=== PATIENT | male | born 1950 | race Caucasian/White ===

== ENCOUNTER → 2016-10-11 | Outpatient (CLI) | payer MEDICARE, OTHER ==
[~2016-10-11] MED LIST: ANTARA130 MG PO; ASPIRIN 32325 MG/TA1 PO; ASPIRIN 32325 MG/TAB PO; ASPIRIN E.C. 8181 MG PO; GEMFIBROZIL600 MG PO; GLIPIZIDE5 MG PO; GLUCOPHAGE1000 MG PO; GLUCOTROL 5M5 MG/TAB PO; GLYBURIDE MICRON3 MG PO; GLYBURIDE MICRON6 MG PO; IMDUR 30MG30 MG/TAB PO; LIPITOR 80MG80 MG PO; LOPID 600M600 MG/TAB PO; LOPRESSOR 550 MG/TAB PO; METFORMIN1000 MG PO; PLAVIX 75MG TAB75 MG PO; PRAVACHOL10 MG PO; ZESTRIL2.5 MG PO
== END ==
LOC: MHCPAIN 09:20
DX: G89.29 Other chronic pain (principal); M47.817 Spondylosis without myelopathy or radiculopathy, lumbosacral region; M79.2 Neuralgia and neuritis, unspecified; F17.210 Nicotine dependence, cigarettes, uncomplicated
CPT/HCPCS: G0463

== ENCOUNTER → 2017-01-12 | Outpatient (CLI) | payer MEDICARE, OTHER | LOC: MHCPAIN 09:36 | DX: G89.29 Other chronic pain (principal); M47.27 Other spondylosis with radiculopathy, lumbosacral region; M79.2 Neuralgia and neuritis, unspecified; F17.210 Nicotine dependence, cigarettes, uncomplicated | CPT/HCPCS: G0463 ==

== ENCOUNTER → 2017-01-27 | Outpatient (CLI) | payer MEDICARE, OTHER | LOC: MHCPAIN 09:51 | DX: M47.27 Other spondylosis with radiculopathy, lumbosacral region (principal); M51.17 Intervertebral disc disorders with radiculopathy, lumbosacral region | CPT/HCPCS: J1100; J2250; J3010; Q9967 ==

== ENCOUNTER → 2017-02-09 | Outpatient (CLI) | payer MEDICARE, OTHER | LOC: MHCPAIN 10:06 | DX: G89.29 Other chronic pain (principal); M47.817 Spondylosis without myelopathy or radiculopathy, lumbosacral region; M79.2 Neuralgia and neuritis, unspecified; F17.210 Nicotine dependence, cigarettes, uncomplicated | CPT/HCPCS: G0463 ==

== ENCOUNTER 2017-05-06 07:15 | Day surgery (SDC) | payer MEDICARE, OTHER ==
[2017-05-06] VITALS (204 sets, daily range): BP systolic 133–158; BP diastolic 64–89; PULSE 70–103; TEMP 97.8–98.8; O2SAT 79–100
[~2017-05-06] VITALS: Ht 170.2 cm; Wt 68.3 kg
[2017-05-06 07:51] LABS: HEMOGLOBIN 14.2 g/dl (13.5-18.0); MEAN CELL VOLUME 91 fl (80.0-100.0); MEAN CORPUSCULAR HEMOGLOBIN 32 pg (27.0-31.0); MEAN CORPUSCULAR HGB CONC 35 g/dl (33.0-37.0); MEAN PLATELET VOLUME 10.6 fl (7.4-10.4); PLATELET COUNT 247 K/mm3 (130-400); RED BLOOD COUNT 4.51 M/mm3 (4.20-5.60); REDCELL DISTRIBUTION WIDTH-CV 13.2 % (11.5-14.5)
[2017-05-06 07:58] LABS: INR 1.1 (0.8-3.0); PROTHROMBIN TIME 12.4 SECONDS (9.7-12.8)
[2017-05-06 08:05] LABS: CALCIUM 9.5 mg/dL (8.4-10.2); CREATININE, serum 0.72 mg/dL (0.66-1.25); POTASSIUM 4.1 mmol/L (3.4-5.0)
[2017-05-06] MEDS ORDERED: GRALISE300 MG PO (11:50)
[2017-05-06] MEDS ORDERED: DEMEROL 50M50 MG/TAB PO (11:50)
[2017-05-06] MEDS ORDERED: LANTUS100 U/ML (11:51)
[2017-05-07 00:05] VITALS: BP 128/56; PULSE 86; TEMP 97.3
[2017-05-07 03:34] LABS: BASO # 0.1 (0.0-0.2); BASO % 0.4 % (0.0-2.0); EOS # 0.3 (0.0-0.7); EOS % 2.3 % (0-4.0); GRAN # 6.5 (1.4-6.5); GRAN % 52.4 % (42.2-75.2); HEMATOCRIT 37.8 % (42.0-52.0); HEMOGLOBIN 13.3 g/dl (13.5-18.0); LYMPH # 4.2 (1.2-3.4); LYMPH % 33.6 % (20.0-51.0); MEAN CELL VOLUME 90 fl (80.0-100.0); MEAN CORPUSCULAR HEMOGLOBIN 32 pg (27.0-31.0); MEAN CORPUSCULAR HGB CONC 35 g/dl (33.0-37.0); MEAN PLATELET VOLUME 10.6 fl (7.4-10.4); MONO # 1.4 (0.1-0.6); PLATELET COUNT 222 K/mm3 (130-400); RED BLOOD COUNT 4.19 M/mm3 (4.20-5.60); REDCELL DISTRIBUTION WIDTH-CV 13.1 % (11.5-14.5)
[2017-05-07 03:47] LABS: CALCIUM 9.2 mg/dL (8.4-10.2); CREATININE, serum 0.66 mg/dL (0.66-1.25)
[2017-05-07 04:08] VITALS: BP 135/64; PULSE 90; TEMP 96.8
[2017-05-07 07:52] VITALS: BP 136/71; PULSE 99; TEMP 97.2
[2017-05-07] MEDS ORDERED: NITROSTAT0.4 MG/TAB SL (08:26)
[2017-05-07] MEDS ORDERED: ASPI325T6 PO (08:27)
== END 2017-05-07 10:20 | disposition home or self-care (01) ==
LOC: COL.CAR 07:15 → ICU 10:37 → MEDICAL 20:10 → COL.CAR 05-07 10:20
PROVIDERS: Internal Medicine Interventional Cardiology
DX: I25.10 Atherosclerotic heart disease of native coronary artery without angina pectoris (principal); R94.39 Abnormal result of other cardiovascular function study; Q23.1 Congenital insufficiency of aortic valve; I73.9 Peripheral vascular disease, unspecified; I87.2 Venous insufficiency (chronic) (peripheral); I83.813 Varicose veins of bilateral lower extremities with pain; I70.213 Atherosclerosis of native arteries of extremities with intermittent claudication, bilateral legs; Z79.01 Long term (current) use of anticoagulants; Z79.4 Long term (current) use of insulin; Z79.82 Long term (current) use of aspirin
CPT/HCPCS: OP; C9600; J0583; J1815; J2250; J3010

== ENCOUNTER 2017-05-18 10:16 | Day surgery (SDC) | payer MEDICARE, OTHER ==
[~2017-05-18] VITALS: Ht 170.2 cm; Wt 69.9 kg
[~2017-05-18 10:16] MED LIST changes: +ASPI325T6 PO; +DEMEROL 50M50 MG/TAB PO; +GRALISE300 MG PO; +LANTUS100 U/ML; +NITROSTAT0.4 MG/TAB SL
[2017-05-18 12:07] VITALS: BP 133/72; PULSE 116; TEMP 97.5
[2017-05-18] MEDS ORDERED: LIPITOR 80MG80 MG PO (12:21)
[2017-05-18] MEDS ORDERED: PRINIVIL5 MG PO (12:22)
[2017-05-18] MEDS ORDERED: PLAVIX 75MG TAB75 MG PO (12:23)
[2017-05-18] MEDS ORDERED: FLEXERIL 1010 MG/TAB PO (12:25)
[2017-05-18] MEDS ORDERED: NAPROSYN500 MG PO (12:25)
[2017-05-18] MEDS ORDERED: GLUCOPHAGE1000 MG PO (12:26)
[2017-05-18] MEDS ORDERED: LOPID 600M600 MG/TAB PO (12:27)
[2017-05-18] MEDS ORDERED: GLUCOTROL 5M5 MG/TAB PO (12:28)
[2017-05-18] MEDS ORDERED: TOPROL XL 50MG50 MG PO (12:28)
[2017-05-18] MEDS ORDERED: NEURONTIN100 MG/CAP (12:32)
== END 2017-05-18 13:00 | disposition home or self-care (01) ==
LOC: SDCO 10:16
DX: J38.7 Other diseases of larynx (principal); Z53.8 Procedure and treatment not carried out for other reasons; E11.65 Type 2 diabetes mellitus with hyperglycemia; Z79.4 Long term (current) use of insulin; Z79.01 Long term (current) use of anticoagulants; Z79.82 Long term (current) use of aspirin; I25.2 Old myocardial infarction; I10 Essential (primary) hypertension; I25.10 Atherosclerotic heart disease of native coronary artery without angina pectoris; E78.5 Hyperlipidemia, unspecified; K21.9 Gastro-esophageal reflux disease without esophagitis; F17.210 Nicotine dependence, cigarettes, uncomplicated
CPT/HCPCS: J7030

== ENCOUNTER 2017-08-04 17:37 | Inpatient (IN) | payer MEDICARE, OTHER ==
[2017-08-04] VITALS (204 sets, daily range): BP systolic 112; BP diastolic 75; PULSE 103; TEMP 97.5; O2SAT 80–100
[~2017-08-04] VITALS: Ht 170.2 cm; Wt 69.4 kg
[~2017-08-04 17:37] MED LIST changes: +ASPIRIN 81M81 MG/TA2 PO; +ELIQUIS 5MG PO; +FLEXERIL 1010 MG/TAB PO; +NAPROSYN500 MG PO; +NEURONTIN100 MG/CAP; +NORCO 325 MG-51 TAB PO; +PRINIVIL5 MG PO; +TOPROL XL 50MG50 MG PO; +VOLTAREN 50MG T50 MG PO; +ZANTAC 150MG T150 MG PO
[2017-08-04 19:28] LABS: BASO # 0.1 (0.0-0.2); BASO % 0.5 % (0.0-2.0); EOS # 0.2 (0.0-0.7); EOS % 1.9 % (0-4.0); HEMOGLOBIN 12.4 g/dl (13.5-18.0); LYMPH # 3.5 (1.2-3.4); MEAN CELL VOLUME 91 fl (80.0-100.0); MEAN CORPUSCULAR HEMOGLOBIN 31 pg (27.0-31.0); MEAN CORPUSCULAR HGB CONC 34 g/dl (33.0-37.0); MEAN PLATELET VOLUME 11.5 fl (7.4-10.4); MONO # 1.1 (0.1-0.6); MONO % 10.4 % (1.7-9.3); PLATELET COUNT 172 K/mm3 (130-400); RED BLOOD COUNT 3.98 M/mm3 (4.20-5.60); REDCELL DISTRIBUTION WIDTH-CV 12.7 % (11.5-14.5)
[2017-08-04 19:32] LABS: HEMATOCRIT 36.1 % (42.0-52.0)
[2017-08-04 19:50] LABS: ALBUMIN 3.5 gm/dL (3.5-5.0); BILIRUBIN,TOTAL 0.5 mg/dL (0.0-1.0); CALCIUM 8.8 mg/dL (8.4-10.2); CHOLESTEROL RISK RATIO 5.7; CREATININE, serum 0.64 mg/dL (0.66-1.25); MAGNESIUM 1.9 mg/dL (1.6-2.3); POTASSIUM 4.1 mmol/L (3.4-5.0); TOTAL PROTEIN 6.4 gm/dL (6.4-8.2)
[2017-08-04 20:03] LABS: TROPONIN-I 5.58 ng/mL (0.000-0.034)
[2017-08-04 20:16] LABS: INR 1.1 (0.8-3.0); PROTHROMBIN TIME 12.7 SECONDS (9.7-12.8)
[2017-08-04] MEDS ORDERED: LOPRESSOR 550 MG/TAB PO (21:53)
[2017-08-04] MEDS ORDERED: LANTUS100 U/ML SQ (21:54)
[2017-08-04] MEDS ORDERED: NEURONTIN300 MG/CAP PO (21:55)
[2017-08-05] VITALS (705 sets, daily range): BP systolic 92–130; BP diastolic 58–98; PULSE 98–115; TEMP 97.4–99; O2SAT 70–100
[2017-08-05 16:28] LABS: HEMATOCRIT 40.7 % (42.0-52.0); HEMOGLOBIN 13.5 g/dl (13.5-18.0); MEAN CELL VOLUME 93 fl (80.0-100.0); MEAN CORPUSCULAR HEMOGLOBIN 31 pg (27.0-31.0); MEAN CORPUSCULAR HGB CONC 33 g/dl (33.0-37.0); MEAN PLATELET VOLUME 12.3 fl (7.4-10.4); PLATELET COUNT 151 K/mm3 (130-400); RED BLOOD COUNT 4.37 M/mm3 (4.20-5.60)
[2017-08-05 16:39] LABS: CREATININE, serum 0.61 mg/dL (0.66-1.25)
[2017-08-06] VITALS (272 sets, daily range): BP systolic 107–124; BP diastolic 63–79; PULSE 96–116; TEMP 98.3–100.8; O2SAT 73–99
[2017-08-06 05:58] LABS: BASO % 0.4 % (0.0-2.0); EOS # 0.2 (0.0-0.7); EOS % 1.6 % (0-4.0); GRAN # 6.2 (1.4-6.5); GRAN % 60.6 % (42.2-75.2); HEMATOCRIT 37.9 % (42.0-52.0); HEMOGLOBIN 12.9 g/dl (13.5-18.0); LYMPH # 2.5 (1.2-3.4); LYMPH % 24.6 % (20.0-51.0); MEAN CELL VOLUME 90 fl (80.0-100.0); MEAN CORPUSCULAR HEMOGLOBIN 31 pg (27.0-31.0); MEAN CORPUSCULAR HGB CONC 34 g/dl (33.0-37.0); MONO # 1.3 (0.1-0.6); MONO % 12.4 % (1.7-9.3); PLATELET COUNT 186 K/mm3 (130-400); RED BLOOD COUNT 4.21 M/mm3 (4.20-5.60); REDCELL DISTRIBUTION WIDTH-CV 12.9 % (11.5-14.5)
[2017-08-06 06:09] LABS: CREATININE, serum 0.61 mg/dL (0.66-1.25); POTASSIUM 3.6 mmol/L (3.4-5.0)
== END 2017-08-06 12:11 | disposition home or self-care (01) | DRG 247 ==
LOC: MEDICAL 17:37 → ICU 18:20
PROVIDERS: Internal Medicine Cardiovascular Disease; Nurse Practitioner Family
PROC: B2111ZZ Fluoroscopy of Multiple Coronary Arteries using Low Osmolar Contrast (ICD-10-PCS; principal; 2017-08-05)
PROC: 027034Z Dilation of Coronary Artery, One Artery with Drug-eluting Intraluminal Device, Percutaneous Approach (ICD-10-PCS; 2017-08-05)
PROC: B2151ZZ Fluoroscopy of Left Heart using Low Osmolar Contrast (ICD-10-PCS; 2017-08-05)
DX: I21.4 Non-ST elevation (NSTEMI) myocardial infarction (principal); I25.10 Atherosclerotic heart disease of native coronary artery without angina pectoris; I10 Essential (primary) hypertension; Z95.5 Presence of coronary angioplasty implant and graft; I25.5 Ischemic cardiomyopathy; E11.9 Type 2 diabetes mellitus without complications; F17.210 Nicotine dependence, cigarettes, uncomplicated; I70.222 Atherosclerosis of native arteries of extremities with rest pain, left leg; Z95.820 Peripheral vascular angioplasty status with implants and grafts; Z85.21 Personal history of malignant neoplasm of larynx; Z91.14 Patient's other noncompliance with medication regimen
CPT/HCPCS: 99223-AI; 99233-AI; 99239; C1725; C1769; C1874; C1887; C1894; C9600; G0378; G0379; J1644; J1815; J7030; Q9967

== ENCOUNTER → 2018-07-04 | Outpatient (CLI) | payer MEDICARE, OTHER ==
[~2018-07-04] MED LIST changes: +LANTUS100 U/ML SQ; +NEURONTIN300 MG/CAP PO
== END ==
LOC: MHCPAIN 10:00
DX: G89.29 Other chronic pain (principal); M47.814 Spondylosis without myelopathy or radiculopathy, thoracic region
CPT/HCPCS: G0463